=== PATIENT | male | born 1990 | race Two or more races ===

== ENCOUNTER 2017-04-09 02:03 | Emergency (ER) | payer OTHER ==
[~2017-04-09] VITALS: Ht 177.8 cm; Wt 90.7 kg
== END 2017-04-09 08:19 | disposition home or self-care (01) ==
LOC: ER 02:03
DX: T51.0X1A Toxic effect of ethanol, accidental (unintentional), initial encounter (principal); T40.7X1A Poisoning by cannabis (derivatives), accidental (unintentional), initial encounter; R55 Syncope and collapse; R11.10 Vomiting, unspecified; Y92.89 Other specified places as the place of occurrence of the external cause